=== PATIENT | male | born 1980 | race Caucasian/White ===

== ENCOUNTER → 2023-04-19 | Outpatient (CLI) | payer BC ==
--- NOTE | 2023-04-19 16:39 | XR ---
EXAMINATION TYPE: XR ribs RT w pa chest xray DATE OF EXAM: 04/19/2023 COMPARISON: NONE TECHNIQUE: Frontal view of the chest and 4 views of the right ribs are submitted. HISTORY: Pain FINDINGS: The lungs are clear and there is no pneumothorax, pleural effusion, or focal pneumonia. Heart size normal and no overt failure. Osseous structures intact. No acute displaced rib fracture. IMPRESSION: 1. No acute process.
== END | disposition home or self-care (01) ==
LOC: RADXRYALE 15:54
PROVIDERS: ATTEND Physician Assistant
DX: R07.9 Chest pain, unspecified (principal)